=== PATIENT | male | born 1950 | race Caucasian/White ===

== ENCOUNTER 2017-04-16 20:46 | Emergency (ER) | payer OTHER ==
[2017-04-16] MEDS ORDERED: Hydromorphone 1 mg/ml Ampule IM ONE ×2 (21:07→22:05)
[2017-04-16] MEDS ORDERED: Phenergan 25 MG INJ IM ONE (21:07)
[2017-04-16] MEDS ORDERED: Phenergan 25 MG INJ ONE (21:12)
[2017-04-16] MEDS ORDERED: Hydromorphone 1 mg/ml Ampule ONE ×2 (21:14→22:09)
--- NOTE | 2017-04-16 21:15 | ERPHSYRPT ---
- History of Present Illness Time Seen by Provider: 04/16/17 20:56 Source: patient Exam Limitations: no limitations Physician History: PT HAS BEEN OUT OF HIS OXYCODONE 10MG TID AND SOMETIMES QID WHICH HE HAS TAKEN FOR THE PAST YEAR FOR CHRONIC LEFT ANKLE PAIN FOR THE PAST 4 DAYS. PT C/O LEFT ANKLE PAIN AND ALSO C/O AN INTERMITTENT OCCIPITAL HEADACHE AND ELEVATED BP UP TO 174/103 FOR THE PAST 4 DAYS. PT DENIES CHEST PAIN, SHORTNESS OF AIR, FEVER. TODAY PT HAS HAD SOME NAUSEA. Allergies/Adverse Reactions: No Known Drug Allergies Allergy (Unverified 04/16/17 22:08) Home Medications: Allopurinol 300 mg [Zyloprim 300 mg] 300 mg PO DAILY 04/10/17 [History] Aspirin [Nemo Chewable] 81 mg PO DAILY 04/10/17 [History] Gabapentin [Neurontin] 300 mg PO TID 04/10/17 [History] Hydrochlorothiazide 25 mg [hydroDIURIL 25 MG] 25 mg PO DAILY 04/10/17 [ History] Ryan-3/Dha/Epa/Fish Oil [Fish Oil 500 mg Softgel] 360 mg PO DAILY 04/10/17 [ History] Oxycodone / APAP 10/325 mg [Oxycodone-Acetaminophen 10-325] 1 each PO Q6HPRN PRN 04/10/17 [History] Potassium Chloride 20 Meq [Klor-Con 20 MEQ] 20 meq PO DAILY 04/10/17 [History] Valsartan [Diovan] 160 mg PO DAILY 04/10/17 [History] - Review of Systems Constitutional: Other (ELEVATED BP), No Fever Respiratory: No Dyspnea Cardiac: No Chest Pain Abdominal/Gastrointestinal: Nausea Musculoskeletal: Joint Pain (LEFT ANKLE PAIN) Neurological: Headache All Other Systems: Reviewed and Negative - Nursing Vital Signs Nursing Vital Signs: Initial Vital Signs Temperature 98 F 04/16/17 21:01 Pulse Rate 60 04/16/17 21:01 Respiratory Rate 16 04/16/17 21:01 Blood Pressure 200/93 04/16/17 21:01 O2 Sat by Pulse Oximetry 97 04/16/17 21:01 Pain Scale Pain Intensity 4 - Physical Exam General Appearance: alert Eye Exam: PERRL/EOMI Ears, Nose, Throat Exam: TMs normal, pharynx normal, moist mucous membranes Neck Exam: normal inspection Respiratory Exam: lungs clear Cardiovascular Exam: normal heart sounds Gastrointestinal/Abdomen Exam: soft, normal bowel sounds Back Exam: normal range of motion Extremity Exam: No pedal edema Neurologic Exam: alert, cooperative, sensation nml, No motor weakness Skin Exam: warm, dry SpO2 Interpretation: normal SpO2: 97 Oxygen Delivery: Room Air - Course Nursing assessment & vital signs reviewed: Yes Ordered Tests: Medication Summary Discontinued Medications Generic Name Dose Route Start Last Admin Trade Name Itzel PRN Reason Stop Dose Admin Hydromorphone HCl 2 mg 04/16/17 21:07 04/16/17 21:16 Hydromorphone 1 Mg/Ml Ampule IM 04/16/17 21:08 2 mg STAT ONE Administration Hydromorphone HCl Confirm 04/16/17 21:14 Hydromorphone 1 Mg/Ml Ampule Administered 04/16/17 21:15 Dose 2 mg .ROUTE .STK-MED ONE Hydromorphone HCl 1 mg 04/16/17 22:05 04/16/17 22:12 Hydromorphone 1 Mg/Ml Ampule IM 04/16/17 22:06 1 mg STAT ONE Administration Hydromorphone HCl Confirm 04/16/17 22:09 Hydromorphone 1 Mg/Ml Ampule Administered 04/16/17 22:10 Dose 1 mg .ROUTE .STK-MED ONE Promethazine HCl 25 mg 04/16/17 21:07 04/16/17 21:17 Phenergan 25 Mg Inj IM 04/16/17 21:08 25 mg STAT ONE Administration Promethazine HCl Confirm 04/16/17 21:12 Phenergan 25 Mg Inj Administered 04/16/17 21:13 Dose 25 mg .ROUTE .STK-MED ONE - Departure Time of Disposition: 22:38 Departure Disposition: Home Clinical Impression: CHRONIC LEFT ANKLE PAIN, HTN Condition: Stable Critical Care Time: No Referrals: ARUN EDWARDS [Primary Care Provider] - Instructions: Malignant Hypertension, Chronic Pain -- Adult Additional Instructions: FOLLOW UP WITH PRIVATE DOCTOR TOMORROW.
[2017-04-16 22:08] VITALS: BP 162/99; PULSE 56
[2017-04-16] MEDS ORDERED: NORCO 5/325 MG PO ONE (22:36)
[2017-04-16 22:38] VITALS: O2SAT 97
[2017-04-16] MEDS ORDERED: NORCO 5/325 MG ONE (22:42)
== END 2017-04-16 23:03 | disposition home or self-care (01) ==
LOC: ED 20:46
DX: M25.572 Pain in left ankle and joints of left foot (principal); G89.29 Other chronic pain; I10 Essential (primary) hypertension; Z79.891 Long term (current) use of opiate analgesic; Z51.81 Encounter for therapeutic drug level monitoring
CPT/HCPCS: 96372; 99284; J1170; J2550; A9270-GY